=== PATIENT | female | born 1960 | race Caucasian/White ===

== ENCOUNTER → 2017-04-15 | Outpatient (CLI) | payer OTHER | LOC: BRMIMAGING 11:06 | PROVIDERS: ATTEND Family Medicine | DX: R92.1 Mammographic calcification found on diagnostic imaging of breast (principal); Z80.3 Family history of malignant neoplasm of breast | CPT/HCPCS: G0202 ==

== ENCOUNTER → 2017-04-20 | Outpatient (CLI) | payer OTHER | LOC: BRMIMAGING 08:24 | PROVIDERS: ATTEND Family Medicine | DX: K76.89 Other specified diseases of liver (principal); K82.4 Cholesterolosis of gallbladder | CPT/HCPCS: 76705-PO ==

== ENCOUNTER → 2017-05-13 | Outpatient (CLI) | payer OTHER | LOC: BRMIMAGING 10:02 | PROVIDERS: ATTEND Family Medicine | DX: N60.01 Solitary cyst of right breast (principal); R92.1 Mammographic calcification found on diagnostic imaging of breast | CPT/HCPCS: 76641-PO; G0204 ==